=== PATIENT | male | born 1975 | race African-American/Black ===

== ENCOUNTER 2019-04-21 19:48 | Emergency (ER) | payer OTHER ==
[~2019-04-21] VITALS: Ht 180.3 cm; Wt 86.2 kg
[2019-04-21 20:03] LABS: URINE BILIRUBIN NEGATIVE (Negative); URINE BLOOD NEGATIVE (Negative); URINE CLARITY CLEAR; URINE COLOR YELLOW; URINE GLUCOSE-RANDOM NEGATIVE (Negative); URINE KETONES NEGATIVE (Negative); URINE LEUKOCYTES-REFLEX NEGATIVE (Negative); URINE NITRITE-REFLEX NEGATIVE (Negative); URINE PROTEIN NEGATIVE (Negative); URINE SPECIFIC GRAVITY 1.015 (1.005-1.030); URINE UROBILINOGEN 0.2 E.U./dl (0.2-1.0)
[2019-04-21 20:37] LABS: ABSOLUTE BASOPHILS 0.1 thou/uL (0.0-0.2); ABSOLUTE EOSINOPHILS 0.2 thou/uL (0.0-0.7); ABSOLUTE LYMPHOCYTES 2.5 thou/uL (0.8-5.3); ABSOLUTE MONOCYTES 0.4 thou/uL (0.0-1.2); ABSOLUTE NEUTROPHILS 1.9 thou/uL (1.6-8.1); BASOPHILS 1.2 %; EOSINOPHILS 4.1 %; HEMATOCRIT 43.7 % (42.0-52.0); HEMOGLOBIN 15.2 gm/dL (14.0-18.0); LYMPHOCYTES 49.1 %; MCHC 34.9 g/dL (28.0-37.0); MCV 88.7 fL (80.0-100.0); MONOCYTES 8.6 %; MPV 7.2 fl. (7.2-11.1); NUCLEATED RBCS 0 /100WBC; PLATELET COUNT* 383 thou/uL (150-400); RBC 4.92 mil/uL (4.50-6.00); WBC 5.1 thou/uL (4.0-11.0)
[2019-04-21 20:45] LABS: CALCIUM 9.2 mg/dL (8.5-10.1)
[2019-04-21 20:50] LABS: ALBUMIN 3.9 g/dL (3.4-5.0); TOTAL BILIRUBIN 0.4 mg/dL (<0.1-1.0); TOTAL PROTEIN 7.2 g/dL (6.4-8.2)
[2019-04-21] MEDS ORDERED: PEPCID40 MG PO (22:02)
[2019-04-21 22:34] VITALS: BP 114/75
--- NOTE | 2019-04-22 13:28 | EKG ---
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1975 Requested By: Nikolai Malin Order Number: [id number] MD: Rory Khalil Measurements Intervals Printer Rate: 64 P: OK: QRS: -22 QRSD: 99 T: 6 QT: 384 QTc: 396 Interpretive Statements Atrial fibrillation Borderline left axis deviation Baseline wander in lead(s) I,II,aVR,aVL,aVF,V1,V2,V3,V4,V5,V6 No previous ECG available for comparison Electronically Signed On 04-22-2019 13:28:15 PROGRAMMER OR ANALYST by Rory Khalil [email or web address] <ELECTRONICALLY SIGNED> By: Rory Khalil MD, FACC 04/22/19 1328 30 30 Rory Khalil MD, FAC /EPI
== END 2019-04-21 22:34 | disposition home or self-care (01) ==
LOC: M.ERS 19:48
PROVIDERS: Physician Assistant
DX: K22.10 Ulcer of esophagus without bleeding (principal); F17.210 Nicotine dependence, cigarettes, uncomplicated; Z88.0 Allergy status to penicillin